=== PATIENT | female | born 1960 | race Caucasian/White ===

== ENCOUNTER 2024-05-30 14:37 | Emergency (ER) | payer MEDICAID ==
[~2024-05-30] VITALS: Ht 167.6 cm; Wt 91.0 kg
[2024-05-30 14:49] VITALS: BP 154/88; PULSE 70; RESP 12; O2SAT 98
[2024-05-30] MEDS: ASPirin 325 MG TAB PO ONE (15:06)
[2024-05-30] MEDS: NITROGLYCERIN 0.4 MG SL TAB SL ONE (15:24)
== END 2024-05-30 16:19 | disposition left against medical advice (07) ==
LOC: EDBD 14:37 → EDUNIT# 14:37 → ER 14:49
DX: R07.89 Other chest pain (principal); I10 Essential (primary) hypertension; F17.210 Nicotine dependence, cigarettes, uncomplicated; J45.909 Unspecified asthma, uncomplicated
CPT/HCPCS: 93005